=== PATIENT | male | born 1995 | race African-American/Black ===

== ENCOUNTER 2021-02-08 19:07 | Emergency (ER) | payer OTHER ==
[~2021-02-08] VITALS: Ht 185.4 cm; Wt 113.4 kg
== END 2021-02-08 22:04 | disposition home or self-care (01) ==
LOC: ER 19:07 → EMR PED 19:29 → ER 22:04
DX: S81.821A Laceration with foreign body, right lower leg, initial encounter (principal); W25.XXXA Contact with sharp glass, initial encounter; Y93.89 Activity, other specified; Y92.59 Other trade areas as the place of occurrence of the external cause; Y99.8 Other external cause status